=== PATIENT | female | born 1955 | race Caucasian/White ===

== ENCOUNTER 2016-11-27 09:28 | Emergency (ER) | payer MEDICAID | END 2016-11-27 10:28 | disposition left against medical advice (07) | LOC: JP.ED 09:28 | DX: Z53.21 Procedure and treatment not carried out due to patient leaving prior to being seen by health care provider (principal) ==

== ENCOUNTER 2016-12-15 08:50 | Inpatient (IN) | payer MEDICAID ==
[~2016-12-15 08:50] MED LIST: Gabapentin 300 MG Cap PO ONE; Lactated Ringers 1,000 ML IV SCH; Scopolamine 1.5 MG Transdermal Patch TOP SCH
[2016-12-15] MEDS ORDERED: Gabapentin 300 MG Cap PO ONE (10:15)
[2016-12-15] MEDS ORDERED: Thrombin (Bovine) 5,000 Unit Kit ONE ×2 (10:27→13:11)
[2016-12-15] MEDS ORDERED: TRANEXAMIC ACID IV SCH (11:30)
[2016-12-15] MEDS ORDERED: Ketamine 500 MG/5 ML MDV IV ONE (11:30)
[2016-12-15] MEDS ORDERED: Ropivacaine 49.25 ML, Ketorolac 30 MG, EPINEPHrine 0.5 MG, cloNIDine 80 MCG, Sodium Chl... INJECT ONE ×5 (11:30)
[2016-12-15] MEDS ORDERED: SODIUM CHLORIDE 0.9% IV SCH (11:30)
[2016-12-15] MEDS ORDERED: Ondansetron 4 MG/2 ML SDV ONE (13:36)
[2016-12-15] MEDS ORDERED: Propofol 200 MG/20 ML SDV ONE (13:36)
[2016-12-15] MEDS ORDERED: Rocuronium 50 MG/5 ML Vial ONE (13:36)
[2016-12-15] MEDS ORDERED: Dexamethasone 4 MG/ML SDV ONE (13:36)
[2016-12-15] MEDS ORDERED: Succinylcholine 200 MG/10 ML MDV ONE (13:36)
[2016-12-15] MEDS ORDERED: Albuterol/Ipratropium 3.0-0.5 MG/3 ML Neb Soln ONE (13:37)
[2016-12-15] MEDS ORDERED: Albuterol/Ipratropium 3.0-0.5 MG/3 ML Neb Soln NEB ONE (14:00)
[2016-12-15] MEDS ORDERED: Meropenem 500 MG SDV ONE (14:07)
[2016-12-15] MEDS ORDERED: Naloxone 0.4 MG/ML SDV IVPUSH PRN (14:16)
[2016-12-15] MEDS ORDERED: HYDROmorphone/Normal Saline 15 MG/30 ML PCA IV PRN (14:16)
[2016-12-15] MEDS ORDERED: Naloxone 0.4 MG/ML SDV IV PRN (14:18)
[2016-12-15] MEDS: Clindamycin Phosphate 900 MG in Sodium Chloride 0.9% 100 ML IV ONE ×2 (14:20→20:15)
[2016-12-15] MEDS: SODIUM CHLORIDE 0.9% IV SCH ×2 (14:40→16:58)
[2016-12-15] MEDS: TRANEXAMIC ACID IV SCH ×2 (14:40→16:58)
[2016-12-15] MEDS ORDERED: Linezolid 200 MG/100 ML Bag IRR ONE (14:47)
[2016-12-15] MEDS ORDERED: Lactated Ringers 1,000 ML ONE (15:37)
[2016-12-15] MEDS ORDERED: fentaNYL 100 MCG/2 ML SDV ONE (16:05)
[2016-12-15] MEDS ORDERED: Ondansetron 4 MG/2 ML SDV IVPUSH PRN (17:09)
[2016-12-15] MEDS ORDERED: Albuterol/Ipratropium 3.0-0.5 MG/3 ML Neb Soln INH SCH (17:15)
[2016-12-15] MEDS ORDERED: hydrOXYzine HCl 100 MG/2 ML SDV IM PRN (17:16)
[2016-12-15] MEDS ORDERED: hydrOXYzine HCl 25 MG Tab PO PRN (17:17)
[2016-12-15] MEDS ORDERED: Cyclobenzaprine 10 MG Tab PO PRN (17:18)
[2016-12-15] MEDS: Pantoprazole 40 MG Vial IV SCH (18:29)
[2016-12-15] MEDS: Albuterol/Ipratropium 3.0-0.5 MG/3 ML Neb Soln INH SCH ×2 (18:56→21:03)
[2016-12-15] MEDS: Dextrose 5%-Lactated Ringers 1,000 ML IV SCH ×2 (19:46→23:15)
[2016-12-15] MEDS: VERIFY SCOPOLAMINE PATCH TOP SCH (20:15)
[2016-12-15] MEDS ORDERED: Dextrose 5%-Lactated Ringers 1,000 ML IV SCH (20:30)
[2016-12-15] MEDS: Tolterodine 2 MG Tab PO SCH (20:54)
[2016-12-15] MEDS: Formoterol/Mometasone 100-5 MCG 8.8 GM Inhaler IH SCH (20:55)
[2016-12-15] MEDS: Gabapentin 300 MG Cap PO SCH (20:56)
[2016-12-15] MEDS: Pramipexole 0.5 MG Tab PO SCH (20:56)
[2016-12-15] MEDS: Montelukast 10 MG Tab PO SCH (20:57)
[2016-12-15] MEDS: Clindamycin Phosphate 900 MG in Sodium Chloride 0.9% 100 ML IV SCH (22:01)
--- NOTE | 2016-12-15 23:04 | OR ---
DATE OF PROCEDURE: 12/15/2016 PREOPERATIVE DIAGNOSES: 1. Lumbar stenosis, L5-S1. 2. Radiculopathy, L5-S1. POSTOPERATIVE DIAGNOSES: 1. Lumbar stenosis, L5-S1. 2. Radiculopathy, L5-S1. PROCEDURES: 1. Anterior lumbar interbody fusion, L5-S1. 2. Segmental instrumentation, L5-S1. 3. Use of interbody device placement at L5-S1. 4. Use of intraoperative fluoroscopy. 5. Use of Signify allograft in interspace. CO-SURGEON: Israel Root MD. [employer]: MOLLY Vivar. ANESTHESIA: General endotracheal intubation. FLUIDS: Lactated Ringer solution. ESTIMATED BLOOD LOSS: 500 mL. COMPLICATIONS: None. SPECIMENS: None. DISCHARGE DISPOSITION: Stable to PACU. INSTRUMENTATION: Globus Magnify-S 25 x 31, 15-degree 10 to 13 mm and three 25 mm screws. INDICATIONS: The patient was seen preoperatively in the clinic. She had failed nonoperative treatment. Preoperative imaging confirmed the above-mentioned diagnosis. Risks and benefits of the procedure were explained to the patient. Informed consent was obtained. DETAILS OF PROCEDURE: The patient was seen preoperatively by myself and anesthesia staff to preop holding area where the operative site was marked. She was brought to the operative suite by the anesthesia staff where general anesthesia was administered. Neuromonitoring leads were placed and were normal throughout the case. She was placed onto a Tomer table. All extremities were found to be well padded. The patient was then prepped and draped in a sterile manner. Time-out was called identifying the correct patient, correct procedure, the correct site, and antibiotics had begun within an appropriate period of time. Please see Dr. Israel Root's note for exposure. After the patient was exposed, the anterior annulus was incised with a 15 blade after being demarcated with Bovie electrocautery unit. The wide Escobar was then used to elevate the annulus from the vertebral body and as much of the disk as could reasonably be removed en block. After this had been performed, the remainder of the disk was removed using Kerrison rongeurs as well as pituitaries and curette down to the posterior longitudinal ligament. This space was very tight and I did use sequential hugh to enlarge the space up to an 11. The space was very tight. I then inserted my trial implant. After this had been performed, I then removed the trial implant and inserted the Magnify-S spacer after placing allograft to the posterior disk space. After this had been accomplished, I then expanded it under direct fluoroscopic visualization. I then used the awl to go and make my drill holes, and then placed the 3 variable angle screws. I then took AP and lateral fluoroscopy views, which had increased our interspace considerably. Please see Dr. Israel Root's note for closure. Sergio Root DO /[id number]
[2016-12-16] MEDS: Dextrose 5%-Lactated Ringers 1,000 ML IV SCH (05:09)
[2016-12-16] MEDS: Clindamycin Phosphate 900 MG in Sodium Chloride 0.9% 100 ML IV SCH ×2 (05:09→14:59)
[2016-12-16] MEDS ORDERED: Dextrose 5%-Lactated Ringers 1,000 ML IV SCH (07:37)
[2016-12-16] MEDS: Tolterodine 2 MG Tab PO SCH ×2 (09:09→20:22)
[2016-12-16] MEDS: Bisacodyl 5 MG Tab PO SCH ×2 (09:10→20:21)
[2016-12-16] MEDS: Gabapentin 300 MG Cap PO SCH ×3 (09:12→20:22)
[2016-12-16] MEDS: Formoterol/Mometasone 100-5 MCG 8.8 GM Inhaler IH SCH ×2 (09:16→20:21)
[2016-12-16] MEDS: VERIFY SCOPOLAMINE PATCH TOP SCH (09:20)
[2016-12-16] MEDS: Albuterol/Ipratropium 3.0-0.5 MG/3 ML Neb Soln INH SCH ×4 (10:03→20:22)
[2016-12-16] MEDS: Acetaminophen/oxyCODONE 325-5 MG Tab PO PRN ×2 (10:05→14:50)
--- NOTE | 2016-12-16 10:11 | PCM.PN ---
- General Info Date of Service: 12/16/16 Admission Dx/Problem (Free Text): There is a pleasant 61 year female who is status postop day 1 of the lumbar fusion anterior approach. She is having no issues at this time. Patient is urinating without any difficulties. She is urinating. We are working on getting her bowels moving today. Patient's pain is under control with oral pain medication. Functional Status: Reports: Pain Controlled, Tolerating Diet, Ambulating, Urinating - Patient Data Vitals - Most Recent: Last Vital Signs Temp 36.9 C 12/16/16 07:25 Pulse 71 12/16/16 07:25 Resp 17 12/16/16 07:25 BP 106/52 L 12/16/16 07:25 Pulse Ox 96 12/16/16 07:25 Weight - Most Recent: 147 lb 4 oz I&O - Last 24 Hours: Intake & Output 12/15/16 12/16/16 12/16/16 22:59 06:59 14:59 Intake Total 460 2218 600 Output Total 340 560 350 Balance 120 1658 250 Lab Results Last 24 Hours: Laboratory Results - last 24 hr 12/15/16 12/16/16 12/16/16 Range/Units 09:50 04:34 04:34 WBC 12.7 H (4.5-11.0) K/uL RBC 4.13 (3.30-5.50) M/uL Hgb 11.8 L D (12.0-15.0) g/dL Hct 37.3 (36.0-48.0) % MCV 90 (80-98) fL MCH 29 (27-31) pg MCHC 32 (32-36) % Plt Count 198 (150-400) K/uL Sodium 142 (140-148) mmol/L Potassium 3.9 (3.6-5.2) mmol/L Chloride 106 (100-108) mmol/L Carbon Dioxide 28 (21-32) mmol/L Anion Gap 7.7 (5.0-14.0) mmol/L BUN 11 (7-18) mg/dL Creatinine 0.8 (0.6-1.0) mg/dL Est Cr Clr Drug Dosing 51.70 mL/min Estimated GFR (MDRD) > 60 (>60) Glucose 246 H (74-106) mg/dL Calcium 7.4 L (8.5-10.1) mg/dL Phosphorus 2.7 (2.5-4.9) mg/dL Magnesium 2.0 (1.8-2.4) mg/dL Blood Type O POSITIVE Gel Antibody Screen Negative Crossmatch See Detail Med Orders - Current: Current Medications Albuterol/Ipratropium (Duoneb 3.0-0.5 Mg/3 Ml) 3 ml INH QIDRT [facility] Last Admin: 12/16/16 10:03 Dose: 3 ml Albuterol/Ipratropium (Duoneb 3.0-0.5 Mg/3 Ml) 3 ml INH ASDIRECTED [facility] Bisacodyl (Dulcolax) 20 mg PO BID [facility] Last Admin: 12/16/16 09:10 Dose: 20 mg Cyclobenzaprine HCl (Flexeril) 10 mg PO Q6H PRN PRN Reason: MUSCLE SPASM Gabapentin (Neurontin) 300 mg PO TID [facility] Last Admin: 12/16/16 09:12 Dose: 300 mg Hydroxyzine HCl (Vistaril) 100 mg IM Q4H PRN PRN Reason: PAIN Hydroxyzine HCl (Atarax) 100 mg PO Q4H PRN PRN Reason: PAIN Clindamycin Phosphate 900 mg/ (Sodium Chloride) 106 mls @ 212 mls/hr IV Q8H [facility] Stop: 12/16/16 14:29 Last Admin: 12/16/16 05:09 Dose: 212 mls/hr Dextrose/Lactated Ringer's (Dextrose 5%-Lactated Ringers) 1,000 mls @ 100 mls/ hr IV ASDIRECTED [facility] Levothyroxine Sodium 75 mcg/ (Levothyroxine Sodium 50 mcg) 125 mcg PO ACBREAKFAST [facility] Last Admin: 12/16/16 07:39 Dose: 125 mcg Mometasone Furoate/Formoterol Fumar (Dulera 100-5 Mcg) 0 puff IH BIDRT [facility] Last Admin: 12/16/16 09:16 Dose: 2 puff Montelukast Sodium (Singulair) 10 mg PO BEDTIME [facility] Last Admin: 12/15/16 20:57 Dose: 10 mg Naloxone HCl (Narcan) 0.1 mg IV ASDIRECTED PRN PRN Reason: decreased respiratory rate Verify Scopolamine (Patch) 0 each TOP DAILY [facility] Last Admin: 12/16/16 09:20 Dose: Not Given Ondansetron HCl (Zofran) 4 mg IVPUSH Q4H PRN PRN Reason: NAUSEA Oxycodone/Acetaminophen (Percocet 325-5 Mg) 1 - 2 tab PO Q4H PRN PRN Reason: paiin Pantoprazole Sodium (Protonix Iv) 40 mg IV Q24H [facility] Last Admin: 12/15/16 18:29 Dose: 40 mg Pramipexole Dihydrochloride (Mirapex) 0.25 mg PO BEDTIME [facility] Last Admin: 12/15/16 20:56 Dose: 0.25 mg Scopolamine (Transderm-Scop) 1.5 mg TOP Q72H [facility] Last Admin: 12/15/16 10:28 Dose: 1.5 mg Senna/Docusate Sodium (Senna Plus) 1 tab PO BID [facility] Last Admin: 12/16/16 09:13 Dose: 1 tab Tolterodine Tartrate (Detrol) 2 mg PO BID [facility] Last Admin: 12/16/16 09:09 Dose: 2 mg Discontinued Medications Albuterol/Ipratropium (Duoneb 3.0-0.5 Mg/3 Ml) 3 ml NEB ONETIME ONE Stop: 12/15/16 14:01 Last Admin: 12/15/16 13:47 Dose: 3 ml Albuterol/Ipratropium (Duoneb 3.0-0.5 Mg/3 Ml) Confirm Administered Dose 3 ml .ROUTE .STK-MED ONE Stop: 12/15/16 13:38 Last Admin: 12/15/16 20:17 Dose: Not Given Ropivacaine 49.25 ml/Ketorolac Tromethamine 30 mg/Epinephrine HCl 0.5 mg/ Clonidine HCl 80 mcg/ Sodium Chloride 48.45 ml 0 ml INJECT ONETIME ONE Stop: 12/15/16 11:31 Last Admin: 12/15/16 20:16 Dose: Not Given Dexamethasone (Dexamethasone) Confirm Administered Dose 4 mg .ROUTE .STK-MED ONE Stop: 12/15/16 13:37 Fentanyl (Sublimaze) Confirm Administered Dose 100 mcg .ROUTE .STK-MED ONE Stop: 12/15/16 16:06 Fentanyl Citrate (Fentanyl) Confirm Administered Dose 500 mcg .ROUTE .STK-MED ONE Stop: 12/15/16 13:37 Gabapentin (Neurontin) 300 mg PO ONETIME ONE Stop: 12/15/16 10:16 Last Admin: 12/15/16 10:30 Dose: 300 mg Hydromorphone HCl (Dilaudid Curb Attendant 15 Mg In Ns 30 Ml) 0 mg IV ASDIRECTED PRN; Protocol PRN Reason: Pain Last Admin: 12/15/16 14:29 Dose: 0.3 mg Clindamycin Phosphate 900 mg/ (Sodium Chloride) 106 mls @ 200 mls/hr IV ONETIME ONE Stop: 12/15/16 07:01 Last Admin: 12/15/16 20:15 Dose: Not Given Lactated Ringer's (Ringers, Lactated) 1,000 mls @ 100 mls/hr IV ASDIRECTED [facility] Ketamine HCl 100 mg/ Sodium (Chloride) 100 mls @ 15 mls/hr IV ASDIRECTED [facility] Stop: 12/15/16 14:00 Linezolid (Zyvox) Confirm Administered Dose 100 mls @ as directed .ROUTE .STK- MED ONE Stop: 12/15/16 10:27 Tranexamic Acid 690 mg/ Sodium (Chloride) 56.9 mls @ 227.6 mls/hr IV Q3H [facility] Stop: 12/15/16 17:14 Last Admin: 12/15/16 16:58 Dose: 227.6 mls/hr Lactated Ringer's (Ringers, Lactated) Confirm Administered Dose 1,000 mls @ as directed .ROUTE .STK-MED ONE Stop: 12/15/16 15:38 Dextrose/Lactated Ringer's (Dextrose 5%-Lactated Ringers) 1,000 mls @ 175 mls/ hr IV ASDIRECTED [facility] Last Admin: 12/16/16 05:09 Dose: 175 mls/hr Ketamine HCl (Ketalar) 25 mg IV ONETIME ONE Stop: 12/15/16 11:31 Last Admin: 12/15/16 20:15 Dose: Not Given Linezolid (Zyvox) 200 mg IRR .STK-MED ONE Stop: 12/15/16 14:48 Last Admin: 12/15/16 14:47 Dose: 200 mg Meropenem (Merrem) Confirm Administered Dose 500 mg .ROUTE .STK-MED ONE Stop: 12/15/16 14:08 Last Admin: 12/15/16 14:46 Dose: 500 mg Ondansetron HCl (Zofran) Confirm Administered Dose 4 mg .ROUTE .STK-MED ONE Stop: 12/15/16 13:37 Propofol (Diprivan 20 Ml) Confirm Administered Dose 200 mg .ROUTE .STK-MED ONE Stop: 12/15/16 13:37 Rocuronium [place] (Zemuron) Confirm Administered Dose 50 mg .ROUTE .STK-MED ONE Stop: 12/15/16 13:37 Succinylcholine Chloride (Quelicin) Confirm Administered Dose 200 mg .ROUTE .STK -MED ONE Stop: 12/15/16 13:37 Thrombin (Thrombin-Jmi) Confirm Administered Dose 5,000 unit .ROUTE .STK-MED ONE Stop: 12/15/16 10:28 Thrombin (Thrombin-Jmi) Confirm Administered Dose 10,000 unit .ROUTE .STK-MED ONE Stop: 12/15/16 13:12 - Exam General: Alert, Oriented Extremities: Normal Inspection, Normal Range of Motion, Non-Tender, No Pedal Edema, Normal Capillary Refill Peripheral Pulses: 2+: Dorsalis Pedis (L), Dorsalis Pedis (R) Skin: Warm, Dry, Intact Wound/Incisions: Healing Well, Dressing Dry and Intact Neurological: No New Focal Deficit, Normal Gait - Problem List Review Problem List Initiated/Reviewed/Updated: Yes - Plan Plan:: At this time patient is doing well. She'll continue with PT OT and pain management.
--- NOTE | 2016-12-16 10:50 | PCM.SURGPN ---
- General Info Date of Service: 12/16/16 POD#: 1 Post-Op Diagnosis: status post lumbar and lumbosacral fusion by anterior technique Functional Status: Reports: Pain Controlled, Tolerating Diet, Ambulating, Urinating - Review of Systems General: Reports: No Symptoms HEENT: Reports: No Symptoms Pulmonary: Reports: No Symptoms Cardiovascular: Reports: No Symptoms Gastrointestinal: Reports: No Symptoms Genitourinary: Reports: No Symptoms Musculoskeletal: Reports: No Symptoms Skin: Reports: No Symptoms Neurological: Reports: No Symptoms Psychiatric: Reports: No Symptoms Systems Review Comment:: Snow reports that she is doing well. States that her incision is slightly painful. She reports that she ate a good lunch and denies having any concerns. - Patient Data Vitals - Most Recent: Last Vital Signs Temp 36.9 C 12/16/16 07:25 Pulse 71 12/16/16 07:25 Resp 17 12/16/16 07:25 BP 106/52 L 12/16/16 07:25 Pulse Ox 96 12/16/16 07:25 Weight - Most Recent: 66.791 kg I&O - Last 24 Hours: Intake & Output 12/15/16 12/16/16 12/16/16 22:59 06:59 14:59 Intake Total 460 2218 600 Output Total 340 560 350 Balance 120 1658 250 Lab Results Last 24 Hrs: Laboratory Results - last 24 hr 12/16/16 12/16/16 Range/Units 04:34 04:34 WBC 12.7 H (4.5-11.0) K/uL RBC 4.13 (3.30-5.50) M/uL Hgb 11.8 L D (12.0-15.0) g/dL Hct 37.3 (36.0-48.0) % MCV 90 (80-98) fL MCH 29 (27-31) pg MCHC 32 (32-36) % Plt Count 198 (150-400) K/uL Sodium 142 (140-148) mmol/L Potassium 3.9 (3.6-5.2) mmol/L Chloride 106 (100-108) mmol/L Carbon Dioxide 28 (21-32) mmol/L Anion Gap 7.7 (5.0-14.0) mmol/L BUN 11 (7-18) mg/dL Creatinine 0.8 (0.6-1.0) mg/dL Est Cr Clr Drug Dosing 51.70 mL/min Estimated GFR (MDRD) > 60 (>60) Glucose 246 H (74-106) mg/dL Calcium 7.4 L (8.5-10.1) mg/dL Phosphorus 2.7 (2.5-4.9) mg/dL Magnesium 2.0 (1.8-2.4) mg/dL Med Orders - Current: Current Medications Albuterol/Ipratropium (Duoneb 3.0-0.5 Mg/3 Ml) 3 ml INH QIDRT [facility] Last Admin: 12/16/16 10:03 Dose: 3 ml Albuterol/Ipratropium (Duoneb 3.0-0.5 Mg/3 Ml) 3 ml INH ASDIRECTED [facility] Bisacodyl (Dulcolax) 20 mg PO BID [facility] Last Admin: 12/16/16 09:10 Dose: 20 mg Cyclobenzaprine HCl (Flexeril) 10 mg PO Q6H PRN PRN Reason: MUSCLE SPASM Gabapentin (Neurontin) 300 mg PO TID [facility] Last Admin: 12/16/16 09:12 Dose: 300 mg Hydroxyzine HCl (Vistaril) 100 mg IM Q4H PRN PRN Reason: PAIN Hydroxyzine HCl (Atarax) 100 mg PO Q4H PRN PRN Reason: PAIN Clindamycin Phosphate 900 mg/ (Sodium Chloride) 106 mls @ 212 mls/hr IV Q8H [facility] Stop: 12/16/16 14:29 Last Admin: 12/16/16 05:09 Dose: 212 mls/hr Dextrose/Lactated Ringer's (Dextrose 5%-Lactated Ringers) 1,000 mls @ 100 mls/ hr IV ASDIRECTED [facility] Levothyroxine Sodium 75 mcg/ (Levothyroxine Sodium 50 mcg) 125 mcg PO ACBREAKFAST [facility] Last Admin: 12/16/16 07:39 Dose: 125 mcg Mometasone Furoate/Formoterol Fumar (Dulera 100-5 Mcg) 0 puff IH BIDRT [facility] Last Admin: 12/16/16 09:16 Dose: 2 puff Montelukast Sodium (Singulair) 10 mg PO BEDTIME [facility] Last Admin: 12/15/16 20:57 Dose: 10 mg Naloxone HCl (Narcan) 0.1 mg IV ASDIRECTED PRN PRN Reason: decreased respiratory rate Verify Scopolamine (Patch) 0 each TOP DAILY [facility] Last Admin: 12/16/16 09:20 Dose: Not Given Ondansetron HCl (Zofran) 4 mg IVPUSH Q4H PRN PRN Reason: NAUSEA Oxycodone/Acetaminophen (Percocet 325-5 Mg) 1 - 2 tab PO Q4H PRN PRN Reason: paiin Pantoprazole Sodium (Protonix Iv) 40 mg IV Q24H [facility] Last Admin: 12/15/16 18:29 Dose: 40 mg Pramipexole Dihydrochloride (Mirapex) 0.25 mg PO BEDTIME [facility] Last Admin: 12/15/16 20:56 Dose: 0.25 mg Scopolamine (Transderm-Scop) 1.5 mg TOP Q72H [facility] Last Admin: 12/15/16 10:28 Dose: 1.5 mg Senna/Docusate Sodium (Senna Plus) 1 tab PO BID [facility] Last Admin: 12/16/16 09:13 Dose: 1 tab Tolterodine Tartrate (Detrol) 2 mg PO BID [facility] Last Admin: 12/16/16 09:09 Dose: 2 mg Discontinued Medications Albuterol/Ipratropium (Duoneb 3.0-0.5 Mg/3 Ml) 3 ml NEB ONETIME ONE Stop: 12/15/16 14:01 Last Admin: 12/15/16 13:47 Dose: 3 ml Albuterol/Ipratropium (Duoneb 3.0-0.5 Mg/3 Ml) Confirm Administered Dose 3 ml .ROUTE .STK-MED ONE Stop: 12/15/16 13:38 Last Admin: 12/15/16 20:17 Dose: Not Given Ropivacaine 49.25 ml/Ketorolac Tromethamine 30 mg/Epinephrine HCl 0.5 mg/ Clonidine HCl 80 mcg/ Sodium Chloride 48.45 ml 0 ml INJECT ONETIME ONE Stop: 12/15/16 11:31 Last Admin: 12/15/16 20:16 Dose: Not Given Dexamethasone (Dexamethasone) Confirm Administered Dose 4 mg .ROUTE .STK-MED ONE Stop: 12/15/16 13:37 Fentanyl (Sublimaze) Confirm Administered Dose 100 mcg .ROUTE .STK-MED ONE Stop: 12/15/16 16:06 Fentanyl Citrate (Fentanyl) Confirm Administered Dose 500 mcg .ROUTE .STK-MED ONE Stop: 12/15/16 13:37 Gabapentin (Neurontin) 300 mg PO ONETIME ONE Stop: 12/15/16 10:16 Last Admin: 12/15/16 10:30 Dose: 300 mg Hydromorphone HCl (Dilaudid Video Game Designer 15 Mg In Ns 30 Ml) 0 mg IV ASDIRECTED PRN; Protocol PRN Reason: Pain Last Admin: 12/15/16 14:29 Dose: 0.3 mg Clindamycin Phosphate 900 mg/ (Sodium Chloride) 106 mls @ 200 mls/hr IV ONETIME ONE Stop: 12/15/16 07:01 Last Admin: 12/15/16 20:15 Dose: Not Given Lactated Ringer's (Ringers, Lactated) 1,000 mls @ 100 mls/hr IV ASDIRECTED [facility] Ketamine HCl 100 mg/ Sodium (Chloride) 100 mls @ 15 mls/hr IV ASDIRECTED [facility] Stop: 12/15/16 14:00 Linezolid (Zyvox) Confirm Administered Dose 100 mls @ as directed .ROUTE .STK- MED ONE Stop: 12/15/16 10:27 Tranexamic Acid 690 mg/ Sodium (Chloride) 56.9 mls @ 227.6 mls/hr IV Q3H [facility] Stop: 12/15/16 17:14 Last Admin: 12/15/16 16:58 Dose: 227.6 mls/hr Lactated Ringer's (Ringers, Lactated) Confirm Administered Dose 1,000 mls @ as directed .ROUTE .STK-MED ONE Stop: 12/15/16 15:38 Dextrose/Lactated Ringer's (Dextrose 5%-Lactated Ringers) 1,000 mls @ 175 mls/ hr IV ASDIRECTED [facility] Last Admin: 12/16/16 05:09 Dose: 175 mls/hr Ketamine HCl (Ketalar) 25 mg IV ONETIME ONE Stop: 12/15/16 11:31 Last Admin: 12/15/16 20:15 Dose: Not Given Linezolid (Zyvox) 200 mg IRR .STK-MED ONE Stop: 12/15/16 14:48 Last Admin: 12/15/16 14:47 Dose: 200 mg Meropenem (Merrem) Confirm Administered Dose 500 mg .ROUTE .STK-MED ONE Stop: 12/15/16 14:08 Last Admin: 12/15/16 14:46 Dose: 500 mg Ondansetron HCl (Zofran) Confirm Administered Dose 4 mg .ROUTE .STK-MED ONE Stop: 12/15/16 13:37 Propofol (Diprivan 20 Ml) Confirm Administered Dose 200 mg .ROUTE .STK-MED ONE Stop: 12/15/16 13:37 Rocuronium [place] (Zemuron) Confirm Administered Dose 50 mg .ROUTE .STK-MED ONE Stop: 12/15/16 13:37 Succinylcholine Chloride (Quelicin) Confirm Administered Dose 200 mg .ROUTE .STK -MED ONE Stop: 12/15/16 13:37 Thrombin (Thrombin-Jmi) Confirm Administered Dose 5,000 unit .ROUTE .STK-MED ONE Stop: 12/15/16 10:28 Thrombin (Thrombin-Jmi) Confirm Administered Dose 10,000 unit .ROUTE .STK-MED ONE Stop: 12/15/16 13:12 - Exam Wound/Incisions: Healing Well, Dressing Dry and Intact Quality Assessment: DVT Prophylaxis General: Alert, Oriented, No Acute Distress HEENT: Pupils Equal, Pupils Reactive Neck: Supple Lungs: Clear to Auscultation, Normal Respiratory Effort Cardiovascular: Regular Rate, Regular Rhythm GI/Abdominal Exam: Soft, Non-Tender Extremities: Normal Inspection, Non-Tender, No Pedal Edema, Other (dorsalis pedis pulses 1+ bilaterally ) Skin: Warm, Dry, Intact Neurological: No New Focal Deficit Psy/Mental Status: Alert, Normal Affect, Normal Mood - Problem List & Annotations (1) Status post lumbar and lumbosacral fusion by anterior technique SNOMED Code(s): 732121378, 994640776, 893109280 Code(s): Z98.1 - ARTHRODESIS STATUS Status: Acute Current Visit: Yes - Problem List Review Problem List Initiated/Reviewed/Updated: Yes - My Orders Last 24 Hours: Active Orders 24 hr Category Date Time Status Patient Status [ADT] Routine ADT 12/15/16 16:50 Active Ambulate [RC] ASDIRECTED Care 12/15/16 18:06 Active Communication Order [RC] ROUTINE Care 12/16/16 07:40 Active DC Tineo Catheter [Urinary Catheter Removal] [RC] Per Care 12/16/16 07:37 Active Unit Routine Drain Management [RC] QSHIFT Care 12/15/16 18:10 Active Insert Tineo Catheter [Insert Urinary Catheter] [OM.PC] Care 12/15/16 18:15 Ordered Q24H Overnight Pulse Oximetry [RC] Click to Edit Care 12/15/16 18:14 Active Oxygen Therapy [RC] PRN Care 12/15/16 18:06 Active RT Aerosol Therapy [RC] ASDIRECTED Care 12/15/16 13:35 Active RT Incentive Spirometry [RC] ASDIRECTED Care 12/15/16 18:06 Active Up to Chair [RC] ASDIRECTED Care 12/15/16 18:06 Active Urinary Catheter Assessment [RC] Q12H Care 12/15/16 18:15 Active Vital Signs [RC] PER UNIT ROUTINE Care 12/15/16 18:06 Active PT Evaluation and Treatment [CONS] Routine Cons 12/15/16 18:06 Active Regular Diet [DIET] Diet 12/16/16 Breakfast Active RED BLOOD CELLS LP [BBK] Routine Lab 12/15/16 09:50 Results TYPE AND SCREEN [BBK] Routine Lab 12/15/16 09:50 Results Acetaminophen/oxyCODONE [Percocet 325-5 MG] Med 12/16/16 07:38 Active 1 - 2 tab PO Q4H PRN Albuterol/Ipratropium [DuoNeb 3.0-0.5 MG/3 ML] Med 12/15/16 17:15 Active 3 ml INH ASDIRECTED Albuterol/Ipratropium [DuoNeb 3.0-0.5 MG/3 ML] Med 12/15/16 17:00 Active 3 ml INH QIDRT Bisacodyl [Dulcolax] Med 12/16/16 09:00 Active 20 mg PO BID Clindamycin Phosphate [Cleocin] 900 mg Med 12/15/16 22:00 Active Sodium Chloride 0.9% [Normal Saline] 100 ml IV Q8H Cyclobenzaprine [Flexeril] Med 12/15/16 17:18 Active 10 mg PO Q6H PRN Dextrose 5%-Lactated Ringers 1,000 ml Med 12/16/16 07:37 Active IV ASDIRECTED Docusate Sodium/Sennosides [Senna Plus] Med 12/16/16 09:00 Active 1 tab PO BID Gabapentin [Neurontin] Med 12/15/16 21:00 Active 300 mg PO TID Levothyroxine [Synthroid] Med 12/16/16 07:30 Active 125 mcg PO ACBREAKFAST Mometasone/Formoterol [Dulera 100-5 MCG] Med 12/15/16 21:00 Active 0 puff IH BIDRT Montelukast [Singulair] Med 12/15/16 21:00 Active 10 mg PO BEDTIME Naloxone [Narcan] Med 12/15/16 14:18 Active 0.1 mg IV ASDIRECTED PRN Ondansetron [Zofran] Med 12/15/16 17:09 Active 4 mg IVPUSH Q4H PRN Pantoprazole [ProTONIX IV] Med 12/15/16 18:00 Active 40 mg IV Q24H Pramipexole [Mirapex] Med 12/15/16 21:00 Active 0.25 mg PO BEDTIME Tolterodine [Detrol] Med 12/15/16 21:00 Active 2 mg PO BID hydrOXYzine HCl [Atarax] Med 12/15/16 17:17 Active 100 mg PO Q4H PRN hydrOXYzine HCl [Vistaril] Med 12/15/16 17:16 Active 100 mg IM Q4H PRN Abdominal Binder [OM.PC] Per Unit Routine Oth 12/15/16 18:09 Ordered Pulse Oximetry Continuous Monitoring [OM.PC] Routine Oth 12/15/16 18:14 Ordered Resuscitation Status Routine Resus Stat 12/15/16 18:06 Ordered Medication Orders Albuterol/Ipratropium (Duoneb 3.0-0.5 Mg/3 Ml) 3 ml INH QIDRT [facility] Last Admin: 12/16/16 10:03 Dose: 3 ml Admin: 12/15/16 21:03 Dose: 3 ml Admin: 12/15/16 18:56 Dose: Not Given Albuterol/Ipratropium (Duoneb 3.0-0.5 Mg/3 Ml) 3 ml INH ASDIRECTED [facility] Bisacodyl (Dulcolax) 20 mg PO BID [facility] Last Admin: 12/16/16 09:10 Dose: 20 mg Cyclobenzaprine HCl (Flexeril) 10 mg PO Q6H PRN PRN Reason: MUSCLE SPASM Gabapentin (Neurontin) 300 mg PO TID [facility] Last Admin: 12/16/16 09:12 Dose: 300 mg Admin: 12/15/16 20:56 Dose: 300 mg Hydroxyzine HCl (Vistaril) 100 mg IM Q4H PRN PRN Reason: PAIN Hydroxyzine HCl (Atarax) 100 mg PO Q4H PRN PRN Reason: PAIN Clindamycin Phosphate 900 mg/ (Sodium Chloride) 106 mls @ 212 mls/hr IV Q8H [facility] Stop: 12/16/16 14:29 Last Admin: 12/16/16 05:09 Dose: 212 mls/hr Admin: 12/15/16 22:01 Dose: 212 mls/hr Dextrose/Lactated Ringer's (Dextrose 5%-Lactated Ringers) 1,000 mls @ 100 mls/ hr IV ASDIRECTED [facility] Levothyroxine Sodium 75 mcg/ (Levothyroxine Sodium 50 mcg) 125 mcg PO ACBREAKFAST [facility] Last Admin: 12/16/16 07:39 Dose: 125 mcg Mometasone Furoate/Formoterol Fumar (Dulera 100-5 Mcg) 0 puff IH BIDRT [facility] Last Admin: 12/16/16 09:16 Dose: 2 puff Admin: 12/15/16 20:55 Dose: 2 puff Montelukast Sodium (Singulair) 10 mg PO BEDTIME [facility] Last Admin: 12/15/16 20:57 Dose: 10 mg Naloxone HCl (Narcan) 0.1 mg IV ASDIRECTED PRN PRN Reason: decreased respiratory rate Verify Scopolamine (Patch) 0 each TOP DAILY [facility] Last Admin: 12/16/16 09:20 Dose: Admin: 12/15/16 20:15 Dose: Ondansetron HCl (Zofran) 4 mg IVPUSH Q4H PRN PRN Reason: NAUSEA Oxycodone/Acetaminophen (Percocet 325-5 Mg) 1 - 2 tab PO Q4H PRN PRN Reason: paiin Pantoprazole Sodium (Protonix Iv) 40 mg IV Q24H [facility] Last Admin: 12/15/16 18:29 Dose: 40 mg Pramipexole Dihydrochloride (Mirapex) 0.25 mg PO BEDTIME [facility] Last Admin: 12/15/16 20:56 Dose: 0.25 mg Scopolamine (Transderm-Scop) 1.5 mg TOP Q72H [facility] Last Admin: 12/15/16 10:28 Dose: 1.5 mg Senna/Docusate Sodium (Senna Plus) 1 tab PO BID [facility] Last Admin: 12/16/16 09:13 Dose: 1 tab Tolterodine Tartrate (Detrol) 2 mg PO BID [facility] Last Admin: 12/16/16 09:09 Dose: 2 mg Admin: 12/15/16 20:54 Dose: 2 mg - Assessment Assessment (Free Text/Narrative):: Status post lumbar and lumbosacral fusion by anterior technique - Plan Plan (Free Text/Narrative):: 1. Advance diet to regular. 2. Decrease IV fluids to 100 ml/hr. 3. Tineo catheter out. 4. Percocet 1-2 tab PO q 4 hours prn for pain. 5. Dulcolax 20 mg PO BID and Senna Plus 1 tab PO BID MARGIE [employer]use Student
[2016-12-16] MEDS: Pantoprazole 40 MG Vial IV SCH (17:29)
[2016-12-16] MEDS: Pramipexole 0.5 MG Tab PO SCH (20:22)
[2016-12-16] MEDS: Montelukast 10 MG Tab PO SCH (20:23)
[2016-12-17 08:14] VITALS: BP 122/60
--- NOTE | 2016-12-17 13:06 | PCM.DCSUM1 ---
Discharge Summary - Hospital Course Free Text/Narrative:: Patient had surgery on 12/15/16. No operative complications. On POD 1 she was changed to oral pain medications, started on a regular diet. She received physical therapy. Her vital signs were stable, activity was good and pain was controlled. On POD 2 she was able to be discharged to home with no complications. - Discharge Data Discharge Date: 12/17/16 Discharge Disposition: Home, Self-Care 01 Condition: Good - Discharge Diagnosis/Problem(s) (1) Status post lumbar and lumbosacral fusion by anterior technique SNOMED Code(s): 559462368, [id number], [id number] ICD Code: Z98.1 - ARTHRODESIS STATUS Status: Acute - Patient Summary/Data Consults: Consultations 12/15/16 18:06 PT Evaluation and Treatment [CONS] Routine Please Evaluate and Treat. PT Reason for Consult: Post op Ortho Surgery Special Instructions: evaluate and teach on post-op day 1. This query below is only for informational purposes and is not editable. - Patient Instructions Diet: Usual Diet as Tolerated, Drink 8-10+ Glasses/Day Activity: As Tolerated, No Lifting Over 10 Pounds Driving: Do Not Drive Showering/Bathing: May Shower Wound/Incision Care: Keep Operative Site/Wound Site Clean and Dry Notify Provider of: Fever, Increased Pain, Nausea and/or Vomiting Other/Special Instructions: Use incentive inspirometer 10 times every hour while awake for 1 week. - Discharge Plan Prescriptions/Med Rec: Acetaminophen [Tylenol] 650 mg PO Q4H PRN #50 tablet PRN Reason: Pain Cyclobenzaprine [Flexeril] 10 mg PO Q6H PRN #30 tablet PRN Reason: muscle spasms Docusate Sodium/Sennosides [Senna Plus] 1 tab PO BID #100 tablet Home Medications: Home Meds Nicotine Polacrilex [Nicotine Lozenge] 4 mg BC DAILY PRN 04/20/16 [History] Albuterol [Ventolin HFA] 2 puff INH Q4H PRN 09/28/16 [History] Ammonium Lactate [Lac-Hydrin 12% Crm] 1 strip TOP BID 09/28/16 [History] Aspirin 81 mg PO DAILY 09/28/16 [History] Cholecalciferol (Vitamin D3) [Vitamin D3] 1 tab PO DAILY 09/28/16 [History] EPINEPHrine [Epipen] 1 pen SQ ASDIRECTED PRN 09/28/16 [History] Fluocinolone Acetonide [Synalar 0.01% Top Soln] 1 strip TOP BID 09/28/16 [ History] Fluticasone Propionate [Flonase] 2 spray NASBOTH DAILY 09/28/16 [History] Fluticasone/Salmeterol [Advair Diskus 100-50] 1 puff INH BID 09/28/16 [History] Hydrocortisone [Hydrocortisone 1% Crm] 1 strip TOP BID 09/28/16 [History] Levothyroxine Sodium [Synthroid] 1 tab PO DAILY 09/28/16 [History] Lovastatin 40 mg PO DAILY 09/28/16 [History] Montelukast [Singulair] 10 mg PO DAILY 09/28/16 [History] Multivitamin [Multivitamins] 1 tab PO DAILY 09/28/16 [History] Nicotine [Nicotrol] 1 puff INH ASDIRECTED PRN 09/28/16 [History] Pramipexole Di-HCl [Mirapex] 1 tab PO DAILY 09/28/16 [History] Ranitidine HCl [Zantac 75] 150 mg PO BID 09/28/16 [History] Tolterodine Tartrate [Detrol LA] 1 tab PO DAILY 09/28/16 [History] Triamcinolone Acetonide [Kenalog 0.1% Crm] 1 strip TOP BID 09/28/16 [History] metroNIDAZOLE [metroNIDAZOLE 0.75% Cream] 1 strip TOP DAILY 09/28/16 [History] Magnesium Oxide [Magnesium] 400 mg PO DAILY 12/15/16 [History] Potassium 99 mg PO DAILY 12/15/16 [History] Acetaminophen [Tylenol] 650 mg PO Q4H PRN #50 tablet 12/17/16 [Rx] Cyclobenzaprine [Flexeril] 10 mg PO Q6H PRN #30 tablet 12/17/16 [Rx] Docusate Sodium/Sennosides [Senna Plus] 1 tab PO BID #100 tablet 12/17/16 [Rx] Patient Handouts: Spinal Fusion, Preventing Constipation After Surgery Referrals: Melinda Hayden PA-C [Physician Liquor Establishment Manager] - 12/25/16 10:00 am Sergio Root DO [Physician] - (appointment to be made ) - General Info Date of Service: 12/17/16 Admission Dx/Problem (Free Text: status post lumbar and lumbosacral fusion by anterior technique Functional Status: Reports: Pain Controlled, Tolerating Diet, Ambulating, Urinating - Review of Systems General: Reports: No Symptoms HEENT: Reports: No Symptoms Pulmonary: Reports: No Symptoms Cardiovascular: Reports: No Symptoms Gastrointestinal: Reports: No Symptoms Genitourinary: Reports: No Symptoms Musculoskeletal: Reports: No Symptoms Skin: Reports: Other (mild pain to incision) Neurological: Reports: No Symptoms Psychiatric: Reports: No Symptoms Systems Review Comment: Snow reports that she is feeling well today and is anxious to go home. She states that her pain is well controlled and she has been ambulating multiple times this morning. Discharge instructions reviewed with her. She denies having any additional concerns. - Patient Data Vitals - Most Recent: Last Vital Signs Temp 37.6 C 12/17/16 08:13 Pulse 85 12/17/16 08:13 Resp 16 12/17/16 08:13 BP 122/60 12/17/16 08:13 Pulse Ox 92 L 12/17/16 08:13 Weight - Most Recent: 66.791 kg I&O - Last 24 hours: Intake & Output 12/16/16 12/17/16 12/17/16 22:59 06:59 14:59 Intake Total 455 240 Output Total 115 800 200 Balance 340 -800 40 Med Orders - Current: Current Medications Discontinued Medications Albuterol/Ipratropium (Duoneb 3.0-0.5 Mg/3 Ml) 3 ml NEB ONETIME ONE Stop: 12/15/16 14:01 Last Admin: 12/15/16 13:47 Dose: 3 ml Albuterol/Ipratropium (Duoneb 3.0-0.5 Mg/3 Ml) Confirm Administered Dose 3 ml .ROUTE .STK-MED ONE Stop: 12/15/16 13:38 Last Admin: 12/15/16 20:17 Dose: Not Given Albuterol/Ipratropium (Duoneb 3.0-0.5 Mg/3 Ml) 3 ml INH QIDRT [place] Last Admin: 12/16/16 20:22 Dose: 3 ml Albuterol/Ipratropium (Duoneb 3.0-0.5 Mg/3 Ml) 3 ml INH ASDIRECTED [facility] Bisacodyl (Dulcolax) 20 mg PO BID [facility] Last Admin: 12/16/16 20:21 Dose: 20 mg Ropivacaine 49.25 ml/Ketorolac Tromethamine 30 mg/Epinephrine HCl 0.5 mg/ Clonidine HCl 80 mcg/ Sodium Chloride 48.45 ml 0 ml INJECT ONETIME ONE Stop: 12/15/16 11:31 Last Admin: 12/15/16 20:16 Dose: Not Given Cyclobenzaprine HCl (Flexeril) 10 mg PO Q6H PRN PRN Reason: MUSCLE SPASM Dexamethasone (Dexamethasone) Confirm Administered Dose 4 mg .ROUTE .STK-MED ONE Stop: 12/15/16 13:37 Fentanyl (Sublimaze) Confirm Administered Dose 100 mcg .ROUTE .STK-MED ONE Stop: 12/15/16 16:06 Fentanyl Citrate (Fentanyl) Confirm Administered Dose 500 mcg .ROUTE .STK-MED ONE Stop: 12/15/16 13:37 Gabapentin (Neurontin) 300 mg PO ONETIME ONE Stop: 12/15/16 10:16 Last Admin: 12/15/16 10:30 Dose: 300 mg Gabapentin (Neurontin) 300 mg PO TID [facility] Last Admin: 12/16/16 20:22 Dose: 300 mg Hydromorphone HCl (Dilaudid Merchandise Stocker 15 Mg In Ns 30 Ml) 0 mg IV ASDIRECTED PRN; Protocol PRN Reason: Pain Last Admin: 12/15/16 14:29 Dose: 0.3 mg Hydroxyzine HCl (Vistaril) 100 mg IM Q4H PRN PRN Reason: PAIN Hydroxyzine HCl (Atarax) 100 mg PO Q4H PRN PRN Reason: PAIN Clindamycin Phosphate 900 mg/ (Sodium Chloride) 106 mls @ 200 mls/hr IV ONETIME ONE Stop: 12/15/16 07:01 Last Admin: 12/15/16 20:15 Dose: Not Given Lactated Ringer's (Ringers, Lactated) 1,000 mls @ 100 mls/hr IV ASDIRECTED [facility] Ketamine HCl 100 mg/ Sodium (Chloride) 100 mls @ 15 mls/hr IV ASDIRECTED [facility] Stop: 12/15/16 14:00 Linezolid (Zyvox) Confirm Administered Dose 100 mls @ as directed .ROUTE .STK- MED ONE Stop: 12/15/16 10:27 Tranexamic Acid 690 mg/ Sodium (Chloride) 56.9 mls @ 227.6 mls/hr IV Q3H [facility] Stop: 12/15/16 17:14 Last Admin: 12/15/16 16:58 Dose: 227.6 mls/hr Lactated Ringer's (Ringers, Lactated) Confirm Administered Dose 1,000 mls @ as directed .ROUTE .STK-MED ONE Stop: 12/15/16 15:38 Dextrose/Lactated Ringer's (Dextrose 5%-Lactated Ringers) 1,000 mls @ 175 mls/ hr IV ASDIRECTED [facility] Last Admin: 12/16/16 05:09 Dose: 175 mls/hr Clindamycin Phosphate 900 mg/ (Sodium Chloride) 106 mls @ 212 mls/hr IV Q8H [facility] Stop: 12/16/16 14:29 Last Admin: 12/16/16 14:59 Dose: 212 mls/hr Dextrose/Lactated Ringer's (Dextrose 5%-Lactated Ringers) 1,000 mls @ 100 mls/ hr IV ASDIRECTED [facility] Ketamine HCl (Ketalar) 25 mg IV ONETIME ONE Stop: 12/15/16 11:31 Last Admin: 12/15/16 20:15 Dose: Not Given Levothyroxine Sodium 75 mcg/ (Levothyroxine Sodium 50 mcg) 125 mcg PO ACBREAKFAST [facility] Last Admin: 12/16/16 07:39 Dose: 125 mcg Linezolid (Zyvox) 200 mg IRR .STK-MED ONE Stop: 12/15/16 14:48 Last Admin: 12/15/16 14:47 Dose: 200 mg Meropenem (Merrem) Confirm Administered Dose 500 mg .ROUTE .STK-MED ONE Stop: 12/15/16 14:08 Last Admin: 12/15/16 14:46 Dose: 500 mg Mometasone Furoate/Formoterol Fumar (Dulera 100-5 Mcg) 0 puff IH BIDRT [facility] Last Admin: 12/16/16 20:21 Dose: 2 puff Montelukast Sodium (Singulair) 10 mg PO BEDTIME [facility] Last Admin: 09/27/17 20:23 Dose: 10 mg Naloxone HCl (Narcan) 0.1 mg IV ASDIRECTED PRN PRN Reason: decreased respiratory rate Verify Scopolamine (Patch) 0 each TOP DAILY [facility] Last Admin: 12/16/16 09:20 Dose: Not Given Ondansetron HCl (Zofran) Confirm Administered Dose 4 mg .ROUTE .STK-MED ONE Stop: 12/15/16 13:37 Ondansetron HCl (Zofran) 4 mg IVPUSH Q4H PRN PRN Reason: NAUSEA Oxycodone/Acetaminophen (Percocet 325-5 Mg) 1 - 2 tab PO Q4H PRN PRN Reason: paiin Last Admin: 12/16/16 14:50 Dose: 2 tab Pantoprazole Sodium (Protonix Iv) 40 mg IV Q24H [facility] Last Admin: 12/16/16 17:29 Dose: 40 mg Pramipexole Dihydrochloride (Mirapex) 0.25 mg PO BEDTIME [facility] Last Admin: 12/16/16 20:22 Dose: 0.25 mg Propofol (Diprivan 20 Ml) Confirm Administered Dose 200 mg .ROUTE .STK-MED ONE Stop: 12/15/16 13:37 Rocuronium [place] (Zemuron) Confirm Administered Dose 50 mg .ROUTE .STK-MED ONE Stop: 12/15/16 13:37 Scopolamine (Transderm-Scop) 1.5 mg TOP Q72H [facility] Last Admin: 12/15/16 10:28 Dose: 1.5 mg Senna/Docusate Sodium (Senna Plus) 1 tab PO BID [facility] Last Admin: 12/16/16 20:23 Dose: 1 tab Succinylcholine Chloride (Quelicin) Confirm Administered Dose 200 mg .ROUTE .STK -MED ONE Stop: 12/15/16 13:37 Thrombin (Thrombin-Jmi) Confirm Administered Dose 5,000 unit .ROUTE .STK-MED ONE Stop: 12/15/16 10:28 Thrombin (Thrombin-Jmi) Confirm Administered Dose 10,000 unit .ROUTE .STK-MED ONE Stop: 12/15/16 13:12 Tolterodine Tartrate (Detrol) 2 mg PO BID [facility] Last Admin: 12/16/16 20:22 Dose: 2 mg - Exam General: Reports: Alert, Oriented, No Acute Distress HEENT: Reports: Pupils Equal, Pupils Reactive Neck: Reports: Supple Lungs: Reports: Clear to Auscultation, Normal Respiratory Effort, Other ( occasional cough which she states is related to allergies ) Cardiovascular: Reports: Regular Rate, Regular Rhythm GI/Abdominal Exam: Normal Bowel Sounds, Soft, Tender (to incision site ) (Female) Exam: Deferred Rectal (Female) Exam: Deferred Back Exam: Reports: Normal Inspection Extremities: Normal Inspection, Normal Range of Motion, No Pedal Edema, Other ( dorsalis pedis pulses present bilaterally ) Skin: Reports: Warm, Dry, Intact Wound/Incisions: Reports: Healing Well Neurological: Reports: No New Focal Deficit Psy/Mental Status: Reports: Alert, Normal Affect, Normal Mood *Q Meaningful Use (DIS) - VTE *Q VTE Criteria *Q: - Stroke *Q Stroke Criteria *Q: - AMI *Q AMI Criteria *Q:
--- NOTE | 2016-12-21 13:26 | OR ---
DATE OF PROCEDURE: 12/15/2016 PREOPERATIVE DIAGNOSIS: L5-S1 stenosis and radiculopathy. POSTOPERATIVE DIAGNOSIS: L5-S1 stenosis and radiculopathy. PROCEDURE: Anterior lumbar interspinal fusion, L5-S1 (25069). ANESTHESIA: General. PROJECT ENGINEERING DIRECTOR: MOLLY Olivo. CO-SURGEON: Sergio Root DO. INDICATION FOR PROCEDURE: A 61-year-old female presenting with symptomatic L5-S1 stenosis and presenting for an anterior lumbar interspinal fusion. The potential risks of the general surgical phase of the procedure were reviewed with the patient in the previous consultations as well as once again today including bleeding, infection, injury of the viscera or ureter, possible injury to the aorta, vena cava or iliac vessels with potentially life-threatening hemorrhage or occlusion of those vessels and vascular reconstructive procedures for correction, along with the possibility of cardiopulmonary, septic, or hemorrhagic complications leading to and the patient wishes to proceed. DETAILS OF PROCEDURE: The patient was taken to the operating room and placed in a supine position. After general endotracheal anesthesia was induced, a Tineo catheter was inserted. The left leg was positioned with a roll underneath the knee to offload some pressure from the psoas muscle on left side. The patient was confirmed to have nicely palpable dorsalis pedis pulses bilaterally. At this point, the abdomen was prepped and draped. A left lower paramedian incision was made and carried down through the skin and subcutaneous tissue and through the anterior rectus sheath at that level. The rectus sheath was then dissected off the rectus muscle laterally allowing the rectus muscle be retracted medially. At this time divided into the plane of dissection into the retroperitoneum. The psoas muscle was encountered and the viscera and ureter were then dissected off the posterior retroperitoneum and then the aorta and left iliac vessels. Further dissection was then eventually allowing the placement of the retractors satisfactorily exposing the L5-S1 interspace anteriorly. Care was then taken to confirm continued ulceration within the iliac artery distal to the point of retraction. The anterior lumbar interspinal fusion was then accomplished for Dr. Sergio Root which will be dictated under a different heading. Upon completion of that phase of the procedure, the area was irrigated with cefoxitin- containing saline solution. No further problems were noted and it was notable that the middle sacral vessels had been divided with Harmonic scalpel and hemostasis was adequate there. Upon removal of the retractors, good pulsation was noted within the iliac vessels bilaterally and the rectus sheath/fascia was then approximated with #2 Vicryl stitch. The subcutaneous tissue was drained with a 10-Irish round Tomer-Phan drain and then closed with a 4-0 Vicryl for subcutaneous tissues along with micheline for the skin. The drain was affixed with some 4-0 Vicryl stitch. At the conclusion of the procedure inspected that the dorsalis pedis pulses were once again confirmed to be good and feet appeared to be well perfused. The patient was taken to the recovery room in satisfactory condition. There were no evident complications. Israel Root MD /[id number]
== END 2016-12-17 10:00 | disposition home or self-care (01) | DRG 460 ==
LOC: EDSTATUS 08:50 → JP.MS 09:34 → JP.SDS 09:34 → JP.MS 16:50
PROVIDERS: ADMIT Orthopaedic Surgery; ATTEND Surgery
PROC: 0SG00A0 Fusion of Lumbar Vertebral Joint with Interbody Fusion Device, Anterior Approach, Anterior Column, Open Approach (ICD-10-PCS; principal; 2016-12-15)
PROC: 0SB20ZZ Excision of Lumbar Vertebral Disc, Open Approach (ICD-10-PCS; principal; 2016-12-15)
DX: M48.06 Spinal stenosis, lumbar region (principal); M54.16 Radiculopathy, lumbar region; Z79.82 Long term (current) use of aspirin; Z79.899 Other long term (current) drug therapy; J44.9 Chronic obstructive pulmonary disease, unspecified; G47.30 Sleep apnea, unspecified; K21.9 Gastro-esophageal reflux disease without esophagitis; E03.9 Hypothyroidism, unspecified; E11.9 Type 2 diabetes mellitus without complications; M10.9 Gout, unspecified; Z85.820 Personal history of malignant melanoma of skin
CPT/HCPCS: 36415; 80048; 83735; 84100; 85027; 86850; 86900; 86901; 86920; 86922; 94640; 94640-76; 94762; 97116-GP; 97161-GP; 97530-GP; 97535-GP; A9270-GY; C1713; C9113; J0330; J1100; J1170; J2020; J2185; J2405; J2704; J3010; J7030; J7042; J7050; J7120; J7620; S0077

== ENCOUNTER 2019-09-26 10:55 | Emergency (ER) | payer MEDICARE, MEDICAID ==
[2019-09-26] MEDS ORDERED: Nitroglycerin 0.4 MG Tab.SL SL PRN (11:08)
[2019-09-26] MEDS ORDERED: Aspirin 81 MG Tab.Chew PO ONE (11:08)
[2019-09-26] MEDS ORDERED: Sodium Chloride 0.9% 10 ML Syringe FLUSH PRN (11:08)
[2019-09-26] MEDS ORDERED: Morphine 4 MG/ML Syringe IVPUSH PRN (11:08)
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
[2019-09-26 12:15] VITALS: BP 100/57; PULSE 78
--- NOTE | 2019-09-26 14:00 | CR ---
CHEST: Portable 09/26/2019 11:26 AM CLINICAL HISTORY:Chest pain COMPARISON:CT 2019 FINDINGS: Heart size is normal. Patient has a permanent cardiac pacer/defibrillator. Pulmonary vascularity is normal. There are atherosclerotic changes in the aorta. No infiltrates are seen. There are no effusions. Impression: No acute cardiopulmonary process .
== END 2019-09-26 14:07 | disposition home or self-care (01) ==
LOC: JP.ED 10:55
DX: R07.89 Other chest pain (principal); J44.9 Chronic obstructive pulmonary disease, unspecified; K21.9 Gastro-esophageal reflux disease without esophagitis; E11.9 Type 2 diabetes mellitus without complications; M10.9 Gout, unspecified; E03.9 Hypothyroidism, unspecified; F17.210 Nicotine dependence, cigarettes, uncomplicated; Z88.1 Allergy status to other antibiotic agents; Z88.5 Allergy status to narcotic agent; Z91.030 Bee allergy status; Z88.8 Allergy status to other drugs, medicaments and biological substances; Z79.82 Long term (current) use of aspirin; Z79.899 Other long term (current) drug therapy
CPT/HCPCS: 36415; 71045; 80053; 84484; 85025; 93005; 99285; A9270; 93010; 99283

== ENCOUNTER 2019-11-23 13:32 | Emergency (ER) | payer MEDICARE, MEDICAID ==
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
[2019-11-23 15:50] VITALS: BP 136/59; PULSE 90
== END 2019-11-23 15:55 | disposition home or self-care (01) ==
LOC: JP.ED 13:32
DX: R30.0 Dysuria (principal); M19.90 Unspecified osteoarthritis, unspecified site; K21.9 Gastro-esophageal reflux disease without esophagitis; J44.9 Chronic obstructive pulmonary disease, unspecified; E78.00 Pure hypercholesterolemia, unspecified; F17.210 Nicotine dependence, cigarettes, uncomplicated; E11.9 Type 2 diabetes mellitus without complications; E03.9 Hypothyroidism, unspecified; I10 Essential (primary) hypertension; Z88.1 Allergy status to other antibiotic agents; Z88.5 Allergy status to narcotic agent; Z88.8 Allergy status to other drugs, medicaments and biological substances; Z91.030 Bee allergy status; Z79.82 Long term (current) use of aspirin; Z86.73 Personal history of transient ischemic attack (TIA), and cerebral infarction without residual deficits; Z79.899 Other long term (current) drug therapy; Z95.0 Presence of cardiac pacemaker
CPT/HCPCS: 81001; 87086; 99283; 99284

== ENCOUNTER 2020-08-30 08:33 | Day surgery (SDC) | payer MEDICARE, MEDICAID ==
[~2020-08-30 08:33] MED LIST changes: -Gabapentin 300 MG Cap PO ONE; -Lactated Ringers 1,000 ML IV SCH; -Scopolamine 1.5 MG Transdermal Patch TOP SCH; +Sodium Chloride 0.9% 1,000 ML IV SCH
[2020-08-30] MEDS ORDERED: Midazolam 1 MG/ML 2 ML SDV ONE (09:22)
[2020-08-30] MEDS ORDERED: fentaNYL 100 MCG/2 ML SDV ONE (09:22)
[2020-08-30] MEDS ORDERED: Propofol 200 MG/20 ML SDV ONE (09:23)
[2020-08-30 11:23] VITALS: PULSE 63
[2020-08-30 11:35] VITALS: BP 110/54
--- NOTE | 2020-08-30 15:12 | OR ---
DATE OF PROCEDURE: SURGEON: Herrera South MD PROCEDURES: 1. Esophagogastroduodenoscopy. 2. Colonoscopy. FINDINGS: 1. [place]-like tongue consistent with gastroesophageal reflux disease versus Roy's extending 3 cm from the GE junction (biopsied using cold biopsy forceps). 2. Diverticulosis, mild, limited to sigmoid colon. COMPLICATIONS: None. 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 ANESTHESIA: MAC. RISKS: Risks, benefits, alternatives, and limitations including, but not limited to infection, bleeding, perforation, false positives and false negatives were explained to the patient who wished to proceed. PROCEDURE IN DETAIL: The patient was placed in left lateral decubitus position. EGD scope was introduced and advanced atraumatically to the second part of the duodenum. No evidence of duodenitis or ulceration. Within the stomach itself, there was no gastritis. The GE junction was noted to have a Z-line at approximately 36 cm from the bite block. The patient had a salmon-type protrusion approximately 2 cm in size, flat in nature, concerning for reflux versus Roy esophagus. This was biopsied along with the other 3 quadrants. The air was removed. The remaining esophagus was inspected without abnormality. Digital rectal exam was performed without abnormality. Colonoscope was introduced and advanced atraumatically to the ileocecal valve. Scope was brought back to the ascending, transverse, descending colon, and retroflexed. No old or new blood. The diverticulosis was described as mild and limited to sigmoid colon without evidence of diverticulitis or bleeding. No abnormalities on retroflexion. Greater than 8 minutes was spent removing the scope. No etiology for the diarrhea. The prep was acceptable, approximately 95% of the luminal surface could be seen. The patient tolerated the procedure well. Herrera South MD /[id number]
== END 2020-08-30 12:10 | disposition home or self-care (01) ==
LOC: JP.SDS 08:33 → EDSTATUS 15:10
PROVIDERS: ATTEND Surgery
DX: K57.30 Diverticulosis of large intestine without perforation or abscess without bleeding (principal); K22.70 Barrett's esophagus without dysplasia; K21.9 Gastro-esophageal reflux disease without esophagitis; K31.89 Other diseases of stomach and duodenum; J44.9 Chronic obstructive pulmonary disease, unspecified; F17.200 Nicotine dependence, unspecified, uncomplicated; I50.9 Heart failure, unspecified
CPT/HCPCS: 43239; 45378; J2250; J2704; J3010; J7030; 88305

== ENCOUNTER 2020-09-28 13:18 | Emergency (ER) | payer MEDICARE, MEDICAID ==
[2020-09-28 14:57] VITALS: BP 118/59; PULSE 90
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
[2020-09-28] MEDS ORDERED: Acetaminophen 500 MG Tab PO ONE (15:37)
--- NOTE | 2020-09-30 09:35 | CR ---
Hip Min 2V or 3V w Pelvis Lt CLINICAL HISTORY: Bruising, left hip pain FINDINGS: No fracture or dislocation seen. There is some soft tissue density over the superior gluteal region on the left which is likely ecchymosis or hematoma. There is bilateral acetabular spurring IMPRESSION: No fracture or dislocation Bilateral acetabular spurring
== END 2020-09-28 16:46 | disposition home or self-care (01) ==
LOC: JP.ED 13:18
DX: S70.02XA Contusion of left hip, initial encounter (principal); E78.00 Pure hypercholesterolemia, unspecified; I10 Essential (primary) hypertension; J44.9 Chronic obstructive pulmonary disease, unspecified; E11.9 Type 2 diabetes mellitus without complications; E03.9 Hypothyroidism, unspecified; Z79.82 Long term (current) use of aspirin; Z79.899 Other long term (current) drug therapy; Z88.0 Allergy status to penicillin; Z91.030 Bee allergy status; Z88.2 Allergy status to sulfonamides; Z88.1 Allergy status to other antibiotic agents; Z88.8 Allergy status to other drugs, medicaments and biological substances; W01.0XXA Fall on same level from slipping, tripping and stumbling without subsequent striking against object, initial encounter
CPT/HCPCS: 73502; 99283; A9270

== ENCOUNTER 2020-11-18 20:58 | Emergency (ER) | payer MEDICARE, MEDICAID ==
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
[2020-11-18 21:57] VITALS: BP 127/76; PULSE 72
== END 2020-11-18 22:46 | disposition home or self-care (01) ==
LOC: JP.ED 20:58
DX: F41.9 Anxiety disorder, unspecified (principal); R42 Dizziness and giddiness; I10 Essential (primary) hypertension; J44.9 Chronic obstructive pulmonary disease, unspecified; K21.9 Gastro-esophageal reflux disease without esophagitis; M10.9 Gout, unspecified; E11.9 Type 2 diabetes mellitus without complications; E03.9 Hypothyroidism, unspecified; Z88.8 Allergy status to other drugs, medicaments and biological substances; Z88.2 Allergy status to sulfonamides; Z88.1 Allergy status to other antibiotic agents; Z91.030 Bee allergy status; Z88.0 Allergy status to penicillin; Z79.82 Long term (current) use of aspirin; Z79.899 Other long term (current) drug therapy
CPT/HCPCS: 99283

== ENCOUNTER 2021-11-06 09:48 | Emergency (ER) | payer MEDICARE, MEDICAID ==
[2021-11-06 11:10] VITALS: BP 152/75; PULSE 102
== END 2021-11-06 11:31 | disposition home or self-care (01) ==
LOC: JP.ED 09:48
DX: R07.2 Precordial pain (principal); R10.13 Epigastric pain; E78.00 Pure hypercholesterolemia, unspecified; I10 Essential (primary) hypertension; J44.9 Chronic obstructive pulmonary disease, unspecified; E11.9 Type 2 diabetes mellitus without complications; E03.9 Hypothyroidism, unspecified; F17.210 Nicotine dependence, cigarettes, uncomplicated; Z86.73 Personal history of transient ischemic attack (TIA), and cerebral infarction without residual deficits; Z88.1 Allergy status to other antibiotic agents; Z88.5 Allergy status to narcotic agent; Z91.030 Bee allergy status; Z88.2 Allergy status to sulfonamides; Z88.8 Allergy status to other drugs, medicaments and biological substances; Z79.82 Long term (current) use of aspirin; Z79.899 Other long term (current) drug therapy; Z95.0 Presence of cardiac pacemaker
CPT/HCPCS: 36415; 84484; 99284

== ENCOUNTER 2022-02-24 17:19 | Emergency (ER) | payer MEDICARE, MEDICAID ==
[2022-02-24 17:32] VITALS: BP 104/25; PULSE 103
== END 2022-02-24 17:45 | disposition home or self-care (01) ==
LOC: JP.ED 17:19
DX: J10.1 Influenza due to other identified influenza virus with other respiratory manifestations (principal); J44.9 Chronic obstructive pulmonary disease, unspecified; E78.00 Pure hypercholesterolemia, unspecified; I10 Essential (primary) hypertension; E11.9 Type 2 diabetes mellitus without complications; Z88.1 Allergy status to other antibiotic agents; Z88.5 Allergy status to narcotic agent; Z88.2 Allergy status to sulfonamides; Z88.8 Allergy status to other drugs, medicaments and biological substances; Z79.899 Other long term (current) drug therapy; Z79.82 Long term (current) use of aspirin; Z90.49 Acquired absence of other specified parts of digestive tract; Z90.710 Acquired absence of both cervix and uterus
CPT/HCPCS: 99284

== ENCOUNTER 2022-07-12 06:01 | Emergency (ER) | payer MEDICARE, MEDICAID ==
[2022-07-12] MEDS ORDERED: Ketorolac 30 MG/ML SDV IM ONE (06:26)
[2022-07-12 07:01] LABS: ESTIMATED GFR 49 mL/min (>60)
[2022-07-12 08:18] VITALS: BP 110/74; PULSE 75
== END 2022-07-12 08:10 | disposition home or self-care (01) ==
LOC: JP.ED 06:01
DX: M17.12 Unilateral primary osteoarthritis, left knee (principal); M11.262 Other chondrocalcinosis, left knee; M10.9 Gout, unspecified; E11.9 Type 2 diabetes mellitus without complications; J44.9 Chronic obstructive pulmonary disease, unspecified; K21.9 Gastro-esophageal reflux disease without esophagitis; E78.00 Pure hypercholesterolemia, unspecified; E03.9 Hypothyroidism, unspecified; I10 Essential (primary) hypertension; Z87.891 Personal history of nicotine dependence; Z86.73 Personal history of transient ischemic attack (TIA), and cerebral infarction without residual deficits; Z79.82 Long term (current) use of aspirin; Z79.899 Other long term (current) drug therapy; Z88.8 Allergy status to other drugs, medicaments and biological substances; Z88.2 Allergy status to sulfonamides; Z88.1 Allergy status to other antibiotic agents; Z91.030 Bee allergy status
CPT/HCPCS: 36415; 73560; 73610; 80053; 83605; 83690; 84550; 85025; 96372; 99283; J1885

== ENCOUNTER 2022-09-02 13:33 | Emergency (ER) | payer MEDICAID, MEDICARE ==
[2022-09-02 15:52] VITALS: PULSE 91
[2022-09-02 16:44] VITALS: BP 121/46
== END 2022-09-02 17:20 | disposition left against medical advice (07) ==
LOC: JP.ED 13:33
DX: T82.190A Other mechanical complication of cardiac electrode, initial encounter (principal); E78.00 Pure hypercholesterolemia, unspecified; I10 Essential (primary) hypertension; J44.9 Chronic obstructive pulmonary disease, unspecified; K21.9 Gastro-esophageal reflux disease without esophagitis; E11.9 Type 2 diabetes mellitus without complications; E03.9 Hypothyroidism, unspecified; Z72.0 Tobacco use; Z88.1 Allergy status to other antibiotic agents; Z88.8 Allergy status to other drugs, medicaments and biological substances; Z88.5 Allergy status to narcotic agent; Z88.2 Allergy status to sulfonamides; Z88.0 Allergy status to penicillin; Z79.899 Other long term (current) drug therapy
CPT/HCPCS: 93005; 99284

== ENCOUNTER 2022-09-08 15:32 | Emergency (ER) | payer MEDICARE ==
[2022-09-08] MEDS ORDERED: Sodium Chloride 0.9% 10 ML Syringe FLUSH PRN (16:22)
[2022-09-08] MEDS ORDERED: Sodium Chloride 0.9% 1,000 ML IV ONE (16:22)
[2022-09-08 16:51] LABS: HEMATOCRIT 47.2 % (34.3-46.0); HEMOGLOBIN 15.5 g/dL (11.2-15.5); MEAN CORPUSCULAR HEMOGLOBIN 28.1 pg (31.6-35.5); MEAN CORPUSCULAR HGB CONC 32.8 g/dL (31.6-35.5); MEAN CORPUSCULAR VOLUME 85.7 fL (81.4-99.0); RED BLOOD CELL COUNT 5.51 M/uL (3.77-5.24); WHITE BLOOD CELL COUNT,WBC 10.7 K/uL (3.2-11.0)
[2022-09-08 17:08] LABS: PROTHROMBIN TIME 9.9 sec (9.2-10.6)
[2022-09-08 17:12] LABS: A/G RATIO 0.8 (1.2-2.2); ALANINE AMINOTRANSFERASE,ALT 31 U/L (12-78); ALBUMIN 3.4 g/dL (3.4-5.0); ALKALINE PHOSPHATASE 162 U/L (46-116); ASPARTATE AMNIOTRANSFERASE,AST 17 U/L (15-37); BILIRUBIN TOTAL 0.3 mg/dL (0.2-1.0); BLOOD UREA NITROGEN,BUN 14 mg/dL (7-18); C-REACTIVE PROTEIN 1.88 mg/dL (0.0-0.3); CALCIUM 8.7 mg/dL (8.5-10.1); CARBON DIOXIDE,CO2 33 mmol/L (21-32); CHLORIDE,CL 99 mmol/L (100-108); CREATININE 1.1 mg/dL (0.6-1.0); EST CRCL DRUG DOSING (CG) 35.16 mL/min; ESTIMATED GFR 55 mL/min (>60); GLUCOSE RANDOM 163 mg/dL (74-106); POTASSIUM,K 3.8 mmol/L (3.6-5.2); PROTEIN TOTAL,TP 7.5 g/dL (6.4-8.2); SODIUM,NA 139 mmol/L (140-148)
[2022-09-08 17:13] LABS: ANION GAP 10.8 mmol/L (5.0-14.0)
[2022-09-08 17:15] LABS: LACTIC ACID 1.7 mmol/L (0.4-2.0)
[2022-09-08 17:26] VITALS: BP 138/61; PULSE 84
[2022-09-08] MEDS ORDERED: Ciprofloxacin 500 MG Tab PO ONE (18:15)
[2022-09-08 18:22] LABS: APPEARANCE,URINE CLEAR (CLEAR); BILIRUBIN,URINE NEGATIVE (NEGATIVE); COLOR,URINE YELLOW (YELLOW); GLUCOSE,URINE NEGATIVE (NEGATIVE); KETONES,URINE NEGATIVE (NEGATIVE); LEUKOCYTE ESTERASE,URINE NEGATIVE (NEGATIVE); NITRITE,URINE NEGATIVE (NEGATIVE); OCCULT BLOOD,URINE NEGATIVE (NEGATIVE); PROTEIN,URINE NEGATIVE (NEGATIVE); UROBILINOGEN,URINE 0.2 EU/dL (0.2-1.0)
[2022-09-08 18:23] LABS: AMORPHOUS SEDIMENT,URINE NOT SEEN; BACTERIA,URINE RARE; EPITHELIAL CELLS,URINE RARE; MUCUS,URINE NOT SEEN; RBC,URINE 0-5 (0-5); WBC,URINE 0-5 (0-5)
== END 2022-09-08 18:42 | disposition home or self-care (01) ==
LOC: JP.ED 15:32
DX: N39.0 Urinary tract infection, site not specified (principal); E11.9 Type 2 diabetes mellitus without complications; J44.9 Chronic obstructive pulmonary disease, unspecified; E03.9 Hypothyroidism, unspecified; Z86.73 Personal history of transient ischemic attack (TIA), and cerebral infarction without residual deficits; Z88.1 Allergy status to other antibiotic agents; Z88.8 Allergy status to other drugs, medicaments and biological substances; Z88.5 Allergy status to narcotic agent; Z91.030 Bee allergy status; Z79.899 Other long term (current) drug therapy; Z72.0 Tobacco use
CPT/HCPCS: 36415; 80053; 81001; 83605; 85027; 85610; 86140; 87040; 87086; 99284; A9270; J7030

== ENCOUNTER 2022-09-11 06:48 | Day surgery (SDC) | payer MEDICAID, MEDICARE ==
[2022-09-11] MEDS ORDERED: fentaNYL 100 MCG/2 ML SDV ONE (07:06)
[2022-09-11] MEDS ORDERED: Propofol 200 MG/20 ML SDV ONE (07:06)
[2022-09-11] MEDS ORDERED: Midazolam 1 MG/ML 2 ML SDV ONE (07:06)
[2022-09-11] MEDS ORDERED: Sodium Chloride 0.9% 1,000 ML IV SCH (07:30)
[2022-09-11 09:03] VITALS: BP 93/46; PULSE 59
== END 2022-09-11 09:20 | disposition home or self-care (01) ==
LOC: JP.SDS 06:48
PROVIDERS: ATTEND Surgery
DX: K21.00 Gastro-esophageal reflux disease with esophagitis, without bleeding (principal); K31.7 Polyp of stomach and duodenum; K29.50 Unspecified chronic gastritis without bleeding; K22.89 Other specified disease of esophagus; I50.9 Heart failure, unspecified; J44.9 Chronic obstructive pulmonary disease, unspecified; G47.33 Obstructive sleep apnea (adult) (pediatric); F90.9 Attention-deficit hyperactivity disorder, unspecified type; E11.9 Type 2 diabetes mellitus without complications; Z88.0 Allergy status to penicillin; Z88.2 Allergy status to sulfonamides; Z88.1 Allergy status to other antibiotic agents; Z88.8 Allergy status to other drugs, medicaments and biological substances
CPT/HCPCS: 43239; 88305; J2250; J2704; J3010; J7030

== ENCOUNTER 2023-02-05 18:39 | Emergency (ER) | payer MEDICARE ==
[2023-02-05 19:33] VITALS: BP 105/43; PULSE 109
[2023-02-05 19:39] LABS: BASOPHILS PERCENT AUTO 0.2 % (0.1-1.3); HEMATOCRIT 39.8 % (34.3-46.0); HEMOGLOBIN 13.3 g/dL (11.2-15.5); IMMATURE GRAN ABSOLUTE AUTO 0.09 K/uL (0.00-0.23); IMMATURE GRAN PERCENT AUTO 1.4 % (0.0-0.7); LYMPHOCYTES ABSOLUTE AUTO 0.97 K/uL (0.8-3.3); LYMPHOCYTES PERCENT AUTO 14.7 % (11.4-47.7); MEAN CORPUSCULAR HEMOGLOBIN 27.8 pg (31.6-35.5); MEAN CORPUSCULAR HGB CONC 33.4 g/dL (31.6-35.5); MEAN CORPUSCULAR VOLUME 83.1 fL (81.4-99.0); MONOCYTES ABSOLUTE AUTO 0.14 K/uL (0.20-0.90); MONOCYTES PERCENT AUTO 2.1 % (3.3-12.6); NEUTROPHILS ABSOLUTE AUTO 5.41 K/uL (1.0-7.6); NEUTROPHILS PERCENT AUTO 81.6 % (40.0-78.1); PLATELET COUNT,PLT 417 K/uL (130-375); RED BLOOD CELL COUNT 4.79 M/uL (3.77-5.24); WHITE BLOOD CELL COUNT,WBC 6.6 K/uL (3.2-11.0)
[2023-02-05 19:40] LABS: BASOPHILS ABSOLUTE AUTO 0.01 K/uL (0.00-0.10)
[2023-02-05 19:57] LABS: A/G RATIO 0.7 (1.2-2.2); ALANINE AMINOTRANSFERASE,ALT 76 U/L (12-78); ALBUMIN 2.8 g/dL (3.4-5.0); ALKALINE PHOSPHATASE 129 U/L (46-116); ASPARTATE AMNIOTRANSFERASE,AST 28 U/L (15-37); BILIRUBIN TOTAL 0.3 mg/dL (0.2-1.0); BLOOD UREA NITROGEN,BUN 22 mg/dL (7-18); CALCIUM 8.5 mg/dL (8.5-10.1); CARBON DIOXIDE,CO2 29 mmol/L (21-32); CHLORIDE,CL 101 mmol/L (100-108); CREATININE 1.2 mg/dL (0.6-1.0); EST CRCL DRUG DOSING (CG) 31.78 mL/min; ESTIMATED GFR 49 mL/min (>60); GLUCOSE RANDOM 255 mg/dL (74-106); MAGNESIUM 1.7 mg/dL (1.8-2.4); POTASSIUM,K 3.4 mmol/L (3.6-5.2); PROTEIN TOTAL,TP 6.6 g/dL (6.4-8.2); SODIUM,NA 142 mmol/L (140-148)
[2023-02-05 19:58] LABS: ANION GAP 15.4 mmol/L (5.0-14.0)
== END 2023-02-05 20:23 | disposition home or self-care (01) ==
LOC: JP.ED 18:39
DX: T82.897A Other specified complication of cardiac prosthetic devices, implants and grafts, initial encounter (principal); I48.91 Unspecified atrial fibrillation; E78.00 Pure hypercholesterolemia, unspecified; I10 Essential (primary) hypertension; J44.9 Chronic obstructive pulmonary disease, unspecified; K21.9 Gastro-esophageal reflux disease without esophagitis; E11.9 Type 2 diabetes mellitus without complications; E03.9 Hypothyroidism, unspecified; Z88.1 Allergy status to other antibiotic agents; Z88.8 Allergy status to other drugs, medicaments and biological substances; Z88.5 Allergy status to narcotic agent; Z88.2 Allergy status to sulfonamides; Z91.030 Bee allergy status; Z88.0 Allergy status to penicillin; Z79.899 Other long term (current) drug therapy; Z79.84 Long term (current) use of oral hypoglycemic drugs
CPT/HCPCS: 36415; 80053; 83735; 85025; 93010; 99284

== ENCOUNTER 2023-10-01 08:15 | Day surgery (SDC) | payer MEDICARE ==
[~2023-10-01 08:15] MED LIST changes: +Midazolam 1 MG/ML 2 ML SDV ONE; +Propofol 200 MG/20 ML SDV ONE; -Sodium Chloride 0.9% 1,000 ML IV SCH; +fentaNYL 50 MCG/ML SDV ONE
[2023-10-01] MEDS: Sodium Chloride 0.9% 1,000 ML IV SCH (09:21)
[2023-10-01 10:34] VITALS: BP 105/54; PULSE 80
== END 2023-10-01 10:50 | disposition home or self-care (01) ==
LOC: JP.SDS 08:15
PROVIDERS: ATTEND Surgery
DX: D12.5 Benign neoplasm of sigmoid colon (principal); G47.33 Obstructive sleep apnea (adult) (pediatric); J44.9 Chronic obstructive pulmonary disease, unspecified; E78.5 Hyperlipidemia, unspecified; I48.91 Unspecified atrial fibrillation; K21.9 Gastro-esophageal reflux disease without esophagitis; E11.9 Type 2 diabetes mellitus without complications; F17.200 Nicotine dependence, unspecified, uncomplicated
CPT/HCPCS: 00811-QZ; 88305; J2250; J2704; J3010; J7030

== ENCOUNTER 2023-11-30 14:50 | Emergency (ER) | payer MEDICARE ==
[2023-11-30] MEDS ORDERED: Sodium Chloride 0.9% 10 ML Syringe FLUSH PRN (16:40)
[2023-11-30 16:45] LABS: BASOPHILS ABSOLUTE AUTO 0.06 K/uL (0.00-0.10); BASOPHILS PERCENT AUTO 0.3 % (0.1-1.3); EOSINOPHILS PERCENT AUTO 0.1 % (0.0-5.4); HEMATOCRIT 40.6 % (34.3-46.0); HEMOGLOBIN 13.9 g/dL (11.2-15.5); IMMATURE GRAN PERCENT AUTO 0.6 % (0.0-0.7); LYMPHOCYTES ABSOLUTE AUTO 2.13 K/uL (0.8-3.3); LYMPHOCYTES PERCENT AUTO 12.2 % (11.4-47.7); MEAN CORPUSCULAR HEMOGLOBIN 28.3 pg (31.6-35.5); MEAN CORPUSCULAR HGB CONC 34.2 g/dL (31.6-35.5); MEAN CORPUSCULAR VOLUME 82.5 fL (81.4-99.0); MONOCYTES ABSOLUTE AUTO 2.16 K/uL (0.20-0.90); MONOCYTES PERCENT AUTO 12.4 % (3.3-12.6); NEUTROPHILS ABSOLUTE AUTO 13.01 K/uL (1.0-7.6); NEUTROPHILS PERCENT AUTO 74.4 % (40.0-78.1); PLATELET COUNT,PLT 230 K/uL (130-375); RED BLOOD CELL COUNT 4.92 M/uL (3.77-5.24); WHITE BLOOD CELL COUNT,WBC 17.5 K/uL (3.2-11.0)
[2023-11-30 16:46] LABS: EOSINOPHILS ABSOLUTE AUTO 0.01 K/uL (0.00-0.40)
[2023-11-30 17:06] LABS: APPEARANCE,URINE CLOUDY (CLEAR); BILIRUBIN,URINE LARGE (NEGATIVE); COLOR,URINE YELLOW (YELLOW); GLUCOSE,URINE NEGATIVE (NEGATIVE); KETONES,URINE 40 mg/dL (NEGATIVE); LEUKOCYTE ESTERASE,URINE NEGATIVE (NEGATIVE); NITRITE,URINE NEGATIVE (NEGATIVE); OCCULT BLOOD,URINE TRACE-INTACT (NEGATIVE); PH,URINE 5.5 (5.0-8.0); PROTEIN,URINE 100 mg/dL (NEGATIVE)
[2023-11-30 17:09] LABS: A/G RATIO 0.7 (1.2-2.2); ALANINE AMINOTRANSFERASE,ALT 24 U/L (12-78); ALKALINE PHOSPHATASE 120 U/L (46-116); ANION GAP 10.8 mmol/L (5.0-14.0); ASPARTATE AMNIOTRANSFERASE,AST 21 U/L (15-37); BLOOD UREA NITROGEN,BUN 26 mg/dL (7-18); CALCIUM 9.1 mg/dL (8.5-10.1); CARBON DIOXIDE,CO2 28 mmol/L (21-32); CHLORIDE,CL 102 mmol/L (100-108); CREATINE KINASE,CK 170 U/L (26-192); CREATININE 1.3 mg/dL (0.6-1.0); EST CRCL DRUG DOSING (CG) 29.34 mL/min; ESTIMATED GFR 45 mL/min (>60); GLUCOSE RANDOM 150 mg/dL (74-106); POTASSIUM,K 3.6 mmol/L (3.6-5.2); PROTEIN TOTAL,TP 7.5 g/dL (6.4-8.2); SODIUM,NA 141 mmol/L (140-148); TROPONIN I HIGH SENSITIVITY 14.8 pg/mL (<=60.3)
[2023-11-30 17:17] LABS: AMORPHOUS SEDIMENT,URINE MANY; AMPHETAMINES SCREEN, URINE NEGATIVE (NEGATIVE); BACTERIA,URINE RARE; BARBITURATE SCREEN,URINE NEGATIVE (NEGATIVE); BENZODIAZEPINES SCREEN,URINE NEGATIVE (NEGATIVE); EPITHELIAL CELLS,URINE RARE; METHADONE SCREEN, URINE NEGATIVE (NEGATIVE); METHAMPHETAMINES SCREEN, URINE NEGATIVE (NEGATIVE); MUCUS,URINE MODERATE; OXYCODONE SCREEN,URINE NEGATIVE (NEGATIVE); PROPOXYPHENE SCREEN,URINE NEGATIVE (NEGATIVE); RBC,URINE 0-5 (0-5); THC SCREEN,URINE 50 NG/ML NEGATIVE (NEGATIVE); WBC,URINE 0-5 (0-5)
[2023-11-30 17:20] LABS: C-REACTIVE PROTEIN 28.91 mg/dL (<0.50)
[2023-11-30] MEDS: Sodium Chloride 0.9% 80 ML IV SCH (17:25)
[2023-11-30] MEDS: Sodium Chloride 0.9% 10 ML Syringe FLUSH PRN (17:25)
[2023-11-30] MEDS: Iopamidol 612 MG/ML 100 ML Bottle IV PRN (17:26)
[2023-11-30] MEDS: Sodium Chloride 0.9% 1,000 ML IV ONE (17:27)
[2023-11-30 18:29] VITALS: BP 116/59; PULSE 101
== END 2023-11-30 19:38 | disposition home or self-care (01) ==
LOC: JP.ED 14:50
DX: M10.9 Gout, unspecified (principal); I10 Essential (primary) hypertension; K21.9 Gastro-esophageal reflux disease without esophagitis; E78.00 Pure hypercholesterolemia, unspecified; E03.9 Hypothyroidism, unspecified; E11.9 Type 2 diabetes mellitus without complications; Z88.1 Allergy status to other antibiotic agents; Z88.2 Allergy status to sulfonamides; Z88.8 Allergy status to other drugs, medicaments and biological substances; Z91.030 Bee allergy status; Z79.890 Hormone replacement therapy; Z79.899 Other long term (current) drug therapy; Z86.16 Personal history of COVID-19; Z90.49 Acquired absence of other specified parts of digestive tract; Z90.710 Acquired absence of both cervix and uterus; W19.XXXA Unspecified fall, initial encounter
CPT/HCPCS: 36415; 70450; 71260; 74177; 80053; 80305; 80307; 81001; 82550; 83605; 84484; 85025; 86140; 87040; 93005; 96360; 99284; J3490; J7030; Q9967; 93010

== ENCOUNTER 2024-01-14 11:17 | Emergency (ER) | payer MEDICARE ==
[2024-01-14 11:49] VITALS: BP 113/57; PULSE 95
== END 2024-01-14 12:08 | disposition home or self-care (01) ==
LOC: JP.ED 11:17
DX: R07.89 Other chest pain (principal); R07.2 Precordial pain; I11.0 Hypertensive heart disease with heart failure; I50.9 Heart failure, unspecified; E78.00 Pure hypercholesterolemia, unspecified; J44.9 Chronic obstructive pulmonary disease, unspecified; K21.9 Gastro-esophageal reflux disease without esophagitis; E11.9 Type 2 diabetes mellitus without complications; E03.9 Hypothyroidism, unspecified; F17.210 Nicotine dependence, cigarettes, uncomplicated; Z86.16 Personal history of COVID-19; Z90.49 Acquired absence of other specified parts of digestive tract; Z90.710 Acquired absence of both cervix and uterus; Z95.810 Presence of automatic (implantable) cardiac defibrillator; Z88.1 Allergy status to other antibiotic agents; Z88.2 Allergy status to sulfonamides; Z88.5 Allergy status to narcotic agent; Z88.0 Allergy status to penicillin; Z88.8 Allergy status to other drugs, medicaments and biological substances; Z91.030 Bee allergy status; Z79.1 Long term (current) use of non-steroidal anti-inflammatories (NSAID); Z79.85 Long-term (current) use of injectable non-insulin antidiabetic drugs; Z79.51 Long term (current) use of inhaled steroids; Z79.890 Hormone replacement therapy; Z79.01 Long term (current) use of anticoagulants; Z79.899 Other long term (current) drug therapy
CPT/HCPCS: 99284

== ENCOUNTER 2024-05-31 21:08 | Emergency (ER) | payer MEDICARE ==
[2024-05-31 21:18] VITALS: BP 151/73; PULSE 93
[2024-05-31 21:47] LABS: BASOPHILS ABSOLUTE AUTO 0.07 K/uL (0.00-0.10); BASOPHILS PERCENT AUTO 0.9 % (0.1-1.3); EOSINOPHILS ABSOLUTE AUTO 0.19 K/uL (0.00-0.40); EOSINOPHILS PERCENT AUTO 2.4 % (0.0-5.4); HEMATOCRIT 43.6 % (34.3-46.0); HEMOGLOBIN 14.6 g/dL (11.2-15.5); IMMATURE GRAN PERCENT AUTO 0.3 % (0.0-0.7); LYMPHOCYTES ABSOLUTE AUTO 3.33 K/uL (0.8-3.3); LYMPHOCYTES PERCENT AUTO 42.7 % (11.4-47.7); MEAN CORPUSCULAR HEMOGLOBIN 28.8 pg (31.6-35.5); MEAN CORPUSCULAR HGB CONC 33.5 g/dL (31.6-35.5); MONOCYTES ABSOLUTE AUTO 0.89 K/uL (0.20-0.90); MONOCYTES PERCENT AUTO 11.4 % (3.3-12.6); NEUTROPHILS ABSOLUTE AUTO 3.29 K/uL (1.0-7.6); NEUTROPHILS PERCENT AUTO 42.3 % (40.0-78.1); PLATELET COUNT,PLT 254 K/uL (130-375); RED BLOOD CELL COUNT 5.07 M/uL (3.77-5.24); WHITE BLOOD CELL COUNT,WBC 7.8 K/uL (3.2-11.0)
[2024-05-31] MEDS: Albuterol/Ipratropium 3.0-0.5 MG/3 ML Neb Soln NEB ONE (21:47)
[2024-05-31 21:48] LABS: IMMATURE GRAN ABSOLUTE AUTO 0.02 K/uL (0.00-0.23)
[2024-05-31 22:04] LABS: ANION GAP 9.6 mmol/L (5.0-14.0); C-REACTIVE PROTEIN 0.94 mg/dL (<0.50); CALCIUM 9.2 mg/dL (8.5-10.1); EST CRCL DRUG DOSING (CG) 37.6 mL/min; POTASSIUM,K 3.9 mmol/L (3.6-5.2)
[2024-05-31 22:31] LABS: CORONAVIRUS COVID-19 NAA NEGATIVE (NEGATIVE); INFLUENZA A NAA NEGATIVE (NEGATIVE); INFLUENZA B NAA NEGATIVE (NEGATIVE); RESPIRATORY SYNCYTIAL VIR NAA NEGATIVE (NEGATIVE)
== END 2024-05-31 23:32 | disposition home or self-care (01) ==
LOC: JP.ED 21:08
DX: J44.1 Chronic obstructive pulmonary disease with (acute) exacerbation (principal); J06.9 Acute upper respiratory infection, unspecified; I10 Essential (primary) hypertension; E78.00 Pure hypercholesterolemia, unspecified; E11.9 Type 2 diabetes mellitus without complications; E03.9 Hypothyroidism, unspecified; Z95.0 Presence of cardiac pacemaker; Z86.16 Personal history of COVID-19; Z88.1 Allergy status to other antibiotic agents; Z88.8 Allergy status to other drugs, medicaments and biological substances; Z88.5 Allergy status to narcotic agent; Z88.0 Allergy status to penicillin; Z88.2 Allergy status to sulfonamides; Z79.51 Long term (current) use of inhaled steroids; Z79.899 Other long term (current) drug therapy; Z79.890 Hormone replacement therapy
CPT/HCPCS: 0241U; 36415; 71045; 80048; 84484; 85025; 86140; 93005; 93010; 94640; 99284; 99285; A9270